=== PATIENT | female | born 1970 | race Caucasian/White ===

== ENCOUNTER → 2016-04-30 | Outpatient (CLI) | payer BC | LOC: TMNT 09:30 | PROVIDERS: ATTEND Family Medicine | DX: K31.84 Gastroparesis (principal) | CPT/HCPCS: 97802 ==

== ENCOUNTER → 2016-10-17 | Day surgery (SDC) | payer BC ==
[~2016-10-17] MED LIST: ALUMINUM/MAGNESIUM/SIMETH 30 ML CUP ONE; BUPIVACAINE HCL PF 0.75% 30 ML VIAL ONE; CLINDAMYCIN PHOS 600 MG/4 ML VIAL ONE; EPINEPHrine HCL (1:1000) 30 MG/30 ML VIAL ONE; KETOROLAC TROMETHAMINE 30 MG/ML (IVP) VIAL IV PUSH ONE; LABETALOL HCL 100 MG/20 ML VIAL ONE; LACTATED RINGER'S 1000 ML INJ 1,000 ML ONE; LIDOCAINE 1.5%/EPINEPHrine 1:200,000 PF SOLN 30 ML AMP ONE; MEPERIDINE HCL 25 MG/ML VIAL ONE; MIDAZOLAM HCL 5 MG/ML VIAL (1 ML) ONE; ONDANSETRON HCL 4 MG/2 ML VIAL IV PUSH ONE; PROPOFOL 200 MG/20 ML AMP IV ONE
--- NOTE | 2016-10-18 16:06 | MP ---
cc: GEO HUNTER M.D. DATE OF SURGERY: 10/17/2016. PREOPERATIVE DIAGNOSIS: Left shoulder intra-articular fracture with avascular necrosis central weightbearing superior aspect of the humerus and bony overgrowth of the posterior healed fracture fragment and internal derangement and reproducible mechanical clicking. POSTOPERATIVE DIAGNOSIS: 1. Significant intra-articular biceps tendon partial rupture. 2. Superior labral tear. 3. Posterior labral tear. 4. Bony overgrowth posterior aspect of the humeral head. 5. Bony overgrowth subacromial space lateral humerus. OPERATIVE PROCEDURE PERFORMED: 1. Left shoulder arthroscopic extensive debridement superior labrum, posterior labrum, posterior humeral head, anterior undersurface subscapularis, partial rotator cuff, subacromial decompression and debridement of bony overgrowth of superolateral humeral head. 2. Left shoulder arthroscopic biceps tenodesis using Arthrex 7 x 23 mm interference screw. SURGEON: Geo Hunter M.D. CLERK OF SUPERIOR COURT SURGEON: VIVI Mccarty. ANESTHESIA: Interscalene block and general. ESTIMATED BLOOD LOSS: Minimum. DRAINS: None. SPECIMEN: None. COMPLICATIONS: None known. INDICATIONS FOR THE PROCEDURE: Nataliia Marion is a 46-year-old female who sustained an intraarticular humerus fracture two years ago. This fracture involved the greater tuberosity with some mild posterior displacement of the fracture fragment. The fracture did go on to heal but she has had chronic pain in her shoulder, deep posteriorly with reproducible clicking and also pain anteriorly and pain issues down into her arm. The risks and benefits had thoroughly been discussed regarding surgical intervention. A detailed informed consent had been obtained. NOTE: It should be noted that the corporate law assistant, Aneudy Whyte is an advanced registered nurse practitioner and his skill set was medically necessary to assist with the performance of the operation. He assisted with positioning of the extremity, helping with holding the arthroscope and helping with complex instrumentation to perform the surgical intervention. DESCRIPTION OF THE PROCEDURE IN DETAIL: The patient was given interscalene block in the preop holding area and brought to the operating room and placed under general anesthetic and turned to the lateral decubitus position with the left shoulder up. The left shoulder was prepped and draped in the usual sterile fashion with an axillary roll in place. IV antibiotics given. Time-out was completed. Posterior portal made. Blunt trocar used to introduce the cannula. We made a lateral-based subacromial portal and anterior portal in the rotator interval. A blunt trocar was used to introduce the cannula. The first photograph shows marked tearing of the biceps tendon as well as tearing along the superior labrum, a type 1 SLAP lesion. We made our anterior portal in the rotator interval and debrided and smoothed and we decided to come in along the course of the biceps tendon and debrided and smoothed and fine-tuned through an accessory portal and then we grabbed the rotator cuff tear and pulled it further into the joint and we saw there was further fraying of the portion of the biceps which was in the bicipital groove and we debrided and smoothed this and we noted that the substance of the biceps had been trimmed down to about 50% and the quality of the tissue was not ideal so decision was made to do a biceps tenodesis. At this point, we visualize the posterior labrum and we noted the tearing and we noted the bony overgrowth about the posterior aspect of the humeral head where the mildly displaced fracture had previously healed and this was changing the humeral head into an oblong instead of round area. We switched the scope and used a 70 degree scope from anteriorly to look posteriorly at this bony overgrowth and we brought the shaver in and smoothed and fine-tuned this area and took this right up to the surface of the rotator cuff and now we saw that the external rotation was markedly improved. We tried this in different angles of abduction as well and follow-up photograph was taken here. We then proceeded with placement of an intra-articular cannula anterior portal and then did somewhat of a whipstitch in the biceps tendon and then passed these sutures out through the accessory portal and a came into the subacromial space and performed subacromial bursectomy and had good visualization and then slightly opened the rotator interval at the level of biceps tendon and placed an additional suture in the tendon and whipstitch locked this and then we changed the angle of the anterior cannula and we went through this cannula with our guide pin at the superior aspect of the bicipital groove and then over into the 7-mm reamer and then placed the tendon down inside of the bone and locked it off with a bio interference screw and then used a bird beak suture passer to pass the stitch and tied this off overlying where the interval had been opened. We had very good hemostasis. We did note some bony overgrowth about the lateral aspect where the original fracture was and this was a little bit more lateral to the rotator cuff insertion so we did debride with the cautery and then shaved this down and smoothed the area out again trying to decrease the mechanical symptomatology which she was having. We had very good hemostasis. Arthroscopic equipment was removed. We closed with absorbable sutures. Steri-Strips applied. Sterile dressing applied. The patient was awoken and returned to the recovery room in stable condition. MD RENEA Alonso/TUTU /12:22 PM /4:08 PM
== END | disposition home or self-care (01) ==
LOC: ESDC 06:58
PROVIDERS: ATTEND Orthopaedic Surgery Sports Medicine
DX: S46.212A Strain of muscle, fascia and tendon of other parts of biceps, left arm, initial encounter (principal); S43.432A Superior glenoid labrum lesion of left shoulder, initial encounter; M89.212 Other disorders of bone development and growth, left shoulder
CPT/HCPCS: 01630; 01716; 01991; 29823; 29828; 64417; C1713; J0171; J1885; J2175; J2250; J2405; J7120